=== PATIENT | male | born 1975 | race Caucasian/White ===

== ENCOUNTER 2023-01-23 19:59 | Emergency (ER) | payer OTHER ==
--- OUTSIDE RECORDS SUMMARY | 2023-01-23 20:02 | XMS REPORT | Continuity of Care Document ---
:1975 Author Organization [facility] t Address [address] [facility] [address] [place] [address] Care Team Providers Name Role Phone Brandi CLEMONS, Kalen Primary Care Physician HYACINTH VEGA Attending Clinician Unavailable HEBER DEGROOT Attending Clinician Unavailable Payers Payer Name Policy Type Policy Number Effective Date Expiration Date S rhys MARTINEZ [facility] [id number] [facility] Problems This patient has no known problems. Allergies, Adverse Reactions, Alerts This patient has no known allergies or adverse reactions. Social History Social Habit Start Date Stop Date Quantity Comments Source Gender identity Gnosticism [facility] Sexual orientation Method ist [facility] Alcohol intake 2016-12-16 2016-12-16 Current drinker [facility] 00:00:00 00:00:00 [facility] (finding) Sex Assigned At [birth year] [facility] 00:00:00 00:00:00 Hospital Smoking Status Start Date Stop Date Source Never smoked tobacco [facility] Medications This patient has no known medications. Procedures Procedure Date / Time Performing Clinician Source Performed CBC W/AUTO DIFF WITH 2022-12-11 15:32:00 [facility] COMPREHENSIVE METABOLIC 2022-12-11 15:32:00 [facility] IRON+TIBC+%SAT 2022-12-11 15:32:00 [facility] FERRITIN 2022-12-11 15:32:00 [facility] TSH + FREE T4 PROFILE 2022-12-11 15:32:00 [facility] HEMOGLOBIN A1C 2022-12-11 15:32:00 [facility] Medicine NT-PROBNP 2022-12-11 15:32:00 [facility] Plan of Care Planned Activity Planned Date Details Comments Source Future Scheduled 2022-12-26 COVID-19 VACCINE (#1) [facility] Hospital Test 09:17:20 [code = COVID-19 VACCINE (#1)] Future Scheduled 2022-12-26 COLONOSCOPY SCREENING [facility] Hospital Test 09:17:20 [code = COLONOSCOPY SCREENING] Future Scheduled 2022-12-26 INFLUENZA VACCINE Method is Hospital Test 09:17:20 [code = INFLUENZA VACCINE] Encounters Start End Encounter Admission Attending Care Care Encounter Source Date/Time Date/Time Type Type Clinicians Facility Department ID 2023-01-25 2023-01-25 Outpatient TORY VEGA [facility] [id number] [facility] 00:00:00 00:00:00 HY[facility]INTH [facility] 2023-01-25 2023-01-25 Outpatient SILVIA Sandra [facility] [id number] [facility] 00:00:00 00:00:00 HYACINTH [facility] 2023-01-14 2023-01-14 Outpatient [facility] [id number] [facility] 10:30:03 14:45:23 HEBER [facility] 2022-12-11 2022-12-11 Outpatient [facility] [id number] [facility] 14:37:28 15:14:19 HEBER [facility] 2022-12-09 2022-12-09 Outpatient [facility] [id number] [facility] 00:00:00 00:00:00 HEBER [facility] 2022-11-11 2022-11-11 Outpatient [facility] [id number] [facility] 00:00:00 00:00:00 HEBER [facility] Results This patient has no known results.
[2023-01-23 20:51] LABS: Protime INR 0.97
[2023-01-23 20:53] LABS: Lymphocytes % 15.4 % (15.3-44.8); MCV 90.1 fL (80-100); MPV 8.7 fL (7.6-11.3); RBC Red Blood Cell Count 4.44 M/uL (4.33-5.43)
--- NOTE | 2023-01-23 21:01 | RAD REPORT ---
EXAM DESCRIPTION: CT - Head Brain Wo Cont - 01/23/2023 8:53 pm CLINICAL HISTORY: SYNCOPE COMPARISON: No comparisons TECHNIQUE: Noncontrast head CT images ad were obtained without IV contrast. Multiplanar reformats we re generated and reviewed. All CT scans are performed using dose optimization technique as appropriate and may include automated exposure control or mA/KV adjustment according to patient size. FINDINGS: No intracranial hemorrhage, mass, or edema. Midline structures are unremarkable. Normal ventricular caliber for age. Angelo-white matter differentiation is preserved, without evidence of acute infarct. No abnormal extra- axial fluid collections. Mastoid air cells and visualized portions of the paranasal sinuses are clear. No acute bony findings. IMPRESSION: No evidence of an acute intracranial process.
[2023-01-23 21:14] LABS: ALT/SGPT 28 U/L (16-61); AST/SGOT 19 U/L (15-37); Albumin 4.1 g/dL (3.4-5.0); Alkaline Phosphatase 71 U/L (45-117); BUN Blood Urea Nitrogen 10 mg/dL (7-18); Bicarbonate 29 mEq/L (21-32); Bilirubin Total 0.3 mg/dL (0.2-1.0); Glomerular Filtration Rate 115 ml/min (=/>90); Glucose Level 103 mg/dL (74-106); Magnesium 2.2 mg/dL (1.6-2.4); Potassium 3.7 mEq/L (3.5-5.1); Protein, Total 6.7 g/dL (6.4-8.2); Sodium Level 138 mEq/L (136-145); Troponin High Sensitivity 3.8 pg/mL (<58.9)
[2023-01-23 21:27] LABS: Bilirubin Direct < 0.1 mg/dL (0-0.2)
[2023-01-23 22:29] LABS: Creatine Phosphokinase 79 U/L (39-308)
--- NOTE | 2023-01-23 22:42 | RAD REPORT ---
EXAM DESCRIPTION: RADChest Single View01/23/2023 10:24 pm CLINICAL HISTORY: weakness COMPARISON: Chest Pa And Lat (2 Views) dated 01/20/2023; Chest Single View dated 12/22/2016; CHEST PA AND LAT 2 VIEW dated 06/19/2014 TECHNIQUE: Portable AP view of the chest. FINDINGS: The lungs are clear. No pneumothorax or effusion. The cardiomediastinal contours are unrem arkable. IMPRESSION: No acute cardiopulmonary process.
[2023-01-24 00:16] LABS: Barbiturates NEGATIVE (NEGATIVE); Benzodiazepines NEGATIVE (NEGATIVE); Cocaine NEGATIVE (NEGATIVE); METHAMPHETAM NEGATIVE (NEGATIVE); Methadone NEGATIVE (NEGATIVE); Opiates NEGATIVE (NEGATIVE); Phencyclidine NEGATIVE (NEGATIVE); THC Cannibis POSITIVE (NEGATIVE)
[2023-01-24 00:18] LABS: Specific Gravity 1.021 (1.005-1.030); Urine Bacteria None Seen /HPF (<20); Urine Bilirubin NEGATIVE (Negative); Urine Blood Negative (Negative); Urine Clarity Clear (Clear); Urine Color Colorless (Yellow); Urine Glucose NEGATIVE (Negative); Urine Protein NEGATIVE (Negative); Urine RBC None Seen /HPF (None Seen); Urine Urobilinogen Normal (Normal); Urine pH 7.5 (5.0-7.0)
--- NOTE | 2023-01-24 00:25 | ER ---
Nurse's Notes [facility] Name: Ismael Olivarez Age: 47 yrs Sex: Male : 1975 Arrival Date: 01/23/2023 Time: 19:59 Bed 20 Private MD: Diagnosis: Syncope;Paresthesia of skin;Weakness;Dizziness and giddiness Presentation: 01/23 20:17 Chief complaint: Patient states: States was sitting down when had 3 syncopal episodes ll3 that lasted for a few seconds, c/o tingling to hands and feet, chest tightness, metallic taste in mouth, SOB, nausea, ringing in ears, generalized weakness, and states "I feel like I am intoxicated, like my brain isn't working". Coronavirus screen: Vaccine status: Patient reports being unvaccinated. At this time, the client does not indicate any symptoms associated with coronavirus-19. Ebola Screen: No symptoms or risks identified at this time. Initial Sepsis Screen: Does the patient meet any 2 criteria? No. Patient's initial sepsis screen is negative. Does the patient have a suspected source of infection? No. Patient's initial sepsis screen is negative. Risk Assessment: Do you want to hurt yourself or someone else? Patient reports no desire to harm self or others. Onset of symptoms was January 23, 2023 at 19:10. 20:17 Method Of Arrival: Wheelchair ll3 20:17 Acuity: JAJA 2 ll3 Historical: - Allergies: 20:23 No Known Allergies; ll3 - Home Meds: 20:23 duloxetine oral [Active]; ll3 - PMHx: 20:23 High Cholesterol; Depressive disorder; ll3 - PSHx: 20:23 Cholecystectomy; ll3 - Immunization history:: Client reports having NOT received the Covid vaccine. - Social history:: Smoking status: Patient denies any tobacco usage or history of. Screenin:33 [facility] ED Fall Risk Assessment (Adult) History of falling in the last 3 months, as6 including since admission No falls in past 3 months (0 pts) Confusion or Disorientation No (0 pts) Intoxicated or Sedated No (0 pts) Impaired Gait Yes (1 pt) Mobility Assist Device Used Yes (1 pt) Altered Elimination No (0 pt) Score/Fall Risk Level 0 - 2 = Low Risk. Abuse screen: Denies threats or abuse. Denies injuries from another. Nutritional screening: No deficits noted. Tuberculosis screening: No symptoms or risk factors identified. Assessment: 20:31 General: Appears in no apparent distress. slender, Behavior is calm, cooperative. as6 General: Reports feeling ill for fatigue for. Pain: Complains of pain in generalized Is chronic. Neuro: Level of Consciousness is awake, alert, obeys commands, Oriented to person, place, time, situation, Reports weakness. Cardiovascular: Capillary refill < 3 seconds Patient's skin is warm and dry. Respiratory: Respiratory effort is even, unlabored, Respiratory pattern is regular, symmetrical. GI: No signs and/or symptoms were reported involving the gastrointestinal system. : No signs and/or symptoms were reported regarding the genitourinary system. EENT: No signs and/or symptoms were reported regarding the EENT system. Derm: Skin is intact, is healthy with good turgor. Musculoskeletal: Reports weakness in generalized. Vital Signs: 20:17 BP 115 / 84; Pulse 73; Resp 17; Temp 97.7(O); Pulse Ox 100% on R/A; Weight 65.77 kg ll3 (R); Height 6 ft. 0 in. (R); 21:35 BP 112 / 74 LA Supine; Pulse 70; Resp 14; oe 21:37 BP 103 / 82 LA Sitting; Pulse 70; Resp 12; oe 21:39 BP 107 / 91 LA Standing; Pulse 78; Resp 20; oe 22:30 BP 110 / 77; Pulse 65; Resp 14 S; Pulse Ox 97% on R/A; as6 23:54 BP 113 / 85; Pulse 65; Resp 12 S; Pulse Ox 98% on R/A; as6 20:17 Body Mass Index 19.67 (65.77 kg, 182.88 cm) ll3 NIH Stroke Scale Scores: 20:45 NIHSS Score: 0 cp ED Course: 20:02 Patient arrived in ED. mr 20:07 Obey Sharpe PA is PHCP. cp 20:07 Gilbert Carlson MD is Attending Physician. cp 20:12 Be Carter, DEJAH is Primary Nurse. as6 20:23 Triage completed. ll3 20:23 Arm band placed on. as6 20:33 Bed in low position. Call light in reach. Side rails up X 1. Adult w/ patient. Client as6 placed on continuous cardiac and pulse oximetry monitoring. NIBP monitoring applied. 20:35 Inserted saline lock: 18 gauge in right antecubital area, using aseptic technique. as6 Blood collected. 20:40 ETOH Level Sent. as6 20:41 Basic Metabolic Panel Sent. as6 20:41 CBC with Diff Sent. as6 20:41 LFT's Sent. as6 20:41 Magnesium Sent. as6 20:41 PT-INR Sent. as6 20:41 Troponin HS Sent. as6 20:54 CT Head Brain wo Cont In Process Unspecified. EDMS 22:26 XRAY Chest (1 view) In Process Unspecified. EDMS 23:23 CT Head Angio In Process Unspecified. EDMS 23:23 CT Neck Angio In Process Unspecified. EDMS 01/24 00:19 Pedro Jaffe MD is Referral Physician. cp 00:44 No provider procedures requiring assistance completed. IV discontinued, intact, as6 bleeding controlled, No redness/swelling at site. Pressure dressing applied. Administered Medications: No medications were administered Medication: 01/23 20:41 VIS not applicable for this client. as6 Outcome: 01/24 00:25 Discharge ordered by . cp 00:44 Discharged to home via wheelchair, with family. as6 00:44 Condition: stable 00:44 Discharge instructions given to patient, Instructed on discharge instructions, follow up and referral plans. Demonstrated understanding of instructions, follow-up care. 00:44 Patient left the ED. as6 NIH Stroke Scale - NIH Stroke Score Date: 01/23/2023 Time: 20:45 Total Score = 0 10. Dysarthria (speech clarity - read or repeat words) - 0(Normal) 11. Extinction and Inattention (visual/tactile/auditory/spatial/personal) - 0(No abnormality) 1a. Level of Consciousness (LOC) - 0(Alert) 1b. Level of Consciousness (LOC) (Month \\T\\ Age) - 0(Both) 1c. LOC Commands (Open \\T\\ Closes Eyes/Service Engine Repairer) - 0(Both) 2. Best Gaze (Lateral Gaze Paresis) - 0(Normal) 3. Visual Field Loss - 0(No visual loss) 4. Facial Palsy - 0(Normal) 5a. Left Arm: Motor (10-second hold) - 0(No drift) 5b. Right Arm: Motor (10-second hold) - 0(No drift) 6a. Left Leg: Motor (5-second hold - always test supine) - 0(No drift) 6b. Right Leg: Motor (5-second hold - always test supine) - 0(No drift) 7. Limb Ataxia (finger/nose \\T\\ heel/chávez - test with eyes open) - 0(Absent) 8. Sensory Loss (pinprick arms/legs/face) - 0(Normal) 9. Best Language: Aphasia (description/naming/reading) - 0(No aphasia) Initials: cp Signatures: Dispatcher [employer] ED [place]Jahaira mr Obey Sharpe PA PA cp Melvin Esteban Ashby RN RN as6 Mari Cam RN RN ll3 Corrections: (The following items were deleted from the chart) 01/23 21:40 21:35 BP 112 / 74; Pulse 70bpm; Resp 14bpm; oe oe 21:42 21:35 BP 112 / 74 Supine R Arm; Pulse 70bpm; Resp 14bpm; oe oe
--- NOTE | 2023-01-24 00:26 | EDPHYS ---
Physician Documentation [facility] Name: Ismael Olivarez Age: 47 yrs Sex: Male : 1975 Arrival Date: 01/23/2023 Time: 19:59 Bed 20 Private MD: ED Physician Gilbert Carlson HPI: 01/23 20:35 This 47 yrs old Male presents to ER via Wheelchair with complaints of METALLIC TASTE, cp Dizziness, Numbness, General Weakness, Altered Mental Status. 20:35 The patient has experienced syncope, lost consciousness. cp 20:35 Onset: The symptoms/episode began/occurred today. Duration: The patient has had cp multiple episodes, that last an unknown period of time. Context: the episode(s) was witnessed, by family, father, occurred at home, occurred while the patient was sitting outside on deck. Just prior to the episode the patient experienced lightheadedness, general weakness. Associated injury: The patient did not suffer any apparent associated injury. Associated signs and symptoms: Pertinent positives: dizziness, lightheadedness, numbness, tingling, general weakness, chest tightness. Patient reports over last several days that he has not felt himself or well, but denies fever, cough, chest and/or abdominal pain. Historical: - Allergies: 20:23 No Known Allergies; ll3 - Home Meds: 20:23 duloxetine oral [Active]; ll3 - PMHx: 20:23 High Cholesterol; Depressive disorder; ll3 - PSHx: 20:23 Cholecystectomy; ll3 - Immunization history:: Client reports having NOT received the Covid vaccine. - Social history:: Smoking status: Patient denies any tobacco usage or history of. ROS: 20:40 Constitutional: Positive for body aches, chills, Negative for fever, poor PO intake. cp 20:40 Cardiovascular: Negative for chest pain, edema, palpitations. cp 20:40 Respiratory: Negative for cough, shortness of breath, wheezing. 20:40 Abdomen/GI: Negative for abdominal pain, nausea, vomiting, and diarrhea. 20:40 Neuro: Positive for dizziness, headache, numbness, syncope, tingling, weakness. Exam: 20:45 Constitutional: The patient appears in no acute distress, alert, awake, cp non-diaphoretic, non-toxic, well developed, well nourished. 20:45 Head/Face: Normocephalic, atraumatic. cp 20:45 Eyes: Periorbital structures: appear normal, Pupils: equal, round, and reactive to light and accomodation, Extraocular movements: intact throughout, Conjunctiva: normal, no exudate, no injection, Sclera: no appreciated abnormality, Lids and lashes: appear normal, bilaterally. 20:45 ENT: External ear(s): are unremarkable, Nose: is normal, Mouth: Lips: moist, Oral mucosa: pink and intact, moist, Posterior pharynx: is normal, airway is patent, no erythema, no exudate. 20:45 Neck: ROM/movement: is normal, is supple, without pain, no range of motions limitations, no meningismus. 20:45 Chest/axilla: Inspection: normal. 20:45 Cardiovascular: Rate: normal, Rhythm: regular, Edema: is not appreciated, JVD: is not appreciated. 20:45 Respiratory: the patient does not display signs of respiratory distress, Respirations: normal, no use of accessory muscles, no retractions, labored breathing, is not present, Breath sounds: are clear throughout, no decreased breath sounds, no stridor, no wheezing. 20:45 Abdomen/GI: Inspection: abdomen appears normal, Bowel sounds: active, all quadrants, Palpation: abdomen is soft and non-tender, in all quadrants. 20:45 Back: pain, is absent, ROM is normal. 20:45 Skin: cellulitis, is not appreciated, no rash present. 20:45 Neuro: Orientation: to person, place \T\ time. Mentation: is normal, Cerebellar function: is grossly normal, Motor: moves all fours, strength is normal, Sensation: no obvious gross deficits. Vital Signs: 20:17 BP 115 / 84; Pulse 73; Resp 17; Temp 97.7(O); Pulse Ox 100% on R/A; Weight 65.77 kg ll3 (R); Height 6 ft. 0 in. (R); 21:35 BP 112 / 74 LA Supine; Pulse 70; Resp 14; oe 21:37 BP 103 / 82 LA Sitting; Pulse 70; Resp 12; oe 21:39 BP 107 / 91 LA Standing; Pulse 78; Resp 20; oe 22:30 BP 110 / 77; Pulse 65; Resp 14 S; Pulse Ox 97% on R/A; as6 23:54 BP 113 / 85; Pulse 65; Resp 12 S; Pulse Ox 98% on R/A; as6 20:17 Body Mass Index 19.67 (65.77 kg, 182.88 cm) ll3 NIH Stroke Scale Scores: 20:45 NIHSS Score: 0 cp MDM: 20:09 Patient medically screened. cp 21:00 Differential Diagnosis: aortic aneurysm, cardiac arrhythmia, cerebrovascular accident, cp drug effect, GI bleed, pseudo seizure, seizure, transient ischemic attack, vasovagal episode, acute MA. 01/24 00:25 Data reviewed: vital signs, nurses notes, lab test result(s), EKG, radiologic studies, cp CT scan, plain films. 00:25 Consideration of Admission/Observation Escalation of care including cp admission/observation considered. Test considered but Not performed: MRI: brain. 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 Response to treatment: the patient's symptoms have markedly improved after treatment, and as a result, I will discharge patient. ED course: VSS. Labs, EKG and radiology studies reviewed. No seizure and/or syncopal episodes observed while monitoring patient. Will discharge to home for continued monitoring. 01/23 20:32 Order name: Basic Metabolic Panel; Complete Time: 23:20 cp 01/23 21:47 Interpretation: Normal except: CRE 0.68. cp 01/23 20:32 Order name: CBC with Diff; Complete Time: 21:47 cp 01/23 21:47 Interpretation: Normal except: LUIS% 74.6. cp 01/23 20:32 Order name: LFT's; Complete Time: 23:20 cp 01/23 21:47 Interpretation: Reviewed. cp 01/23 20:32 Order name: Magnesium; Complete Time: 23:20 cp 01/23 20:32 Order name: PT-INR; Complete Time: 21:47 cp 01/23 20:32 Order name: Troponin HS; Complete Time: 23:20 cp 01/23 23:20 Interpretation: Reviewed. 01/23 20:32 Order name: Urinalysis W/Microscopic; Complete Time: 00:25 cp 01/23 20:32 Order name: UDS; Complete Time: 00:25 cp 01/23 20:32 Order name: ETOH Level; Complete Time: 21:47 cp 01/23 21:48 Order name: COVID-19 SARS RT PCR cp 01/23 22:19 Order name: Creatine Phosphokinase; Complete Time: 23:20 EDMS 01/23 20:32 Order name: XRAY Chest (1 view); Complete Time: 23:20 cp 01/23 23:20 Interpretation: Report review. 01/23 20:32 Order name: CT Head Brain wo Cont; Complete Time: 21:47 cp 01/23 22:37 Order name: CT Head Angio 01/23 22:37 Order name: CT Neck Angio 01/23 20:32 Order name: EKG; Complete Time: 20:33 cp 01/23 20:32 Order name: Cardiac monitoring; Complete Time: 20:33 cp 01/23 20:32 Order name: EKG - Nurse/Tech; Complete Time: 20:33 cp 01/23 20:32 Order name: IV Saline Lock; Complete Time: 20:41 cp 01/23 20:32 Order name: Labs collected and sent; Complete Time: 20:41 cp 01/23 20:32 Order name: O2 Per Protocol; Complete Time: 20:33 cp 01/23 20:32 Order name: O2 Sat Monitoring; Complete Time: 20:33 cp 01/23 20:32 Order name: Orthostatics; Complete Time: 21:37 cp EC:36 Rate is 78 beats/min. Rhythm is regular. NE interval is normal. QRS interval is cp prolonged at 102 msec. QT interval is normal. T waves are Inverted in lead aVR. Interpreted by me. Reviewed by me. Administered Medications: No medications were administered Disposition: 07:14 Co-signature as Attending Physician, Gilbert Carlson MD I agree with the assessment sp4 and plan of care. I reviewed the patient's care provided by the Advanced Practice Provider and agree with the diagnosis and treatment plan. Disposition Summary: 01/24/23 00:25 Discharge Ordered Location: Home cp Problem: new cp Symptoms: have improved cp Condition: Stable cp Diagnosis - Syncope cp - Paresthesia of skin cp - Weakness cp - Dizziness and giddiness cp Followup: cp - With: Pedro Jaffe MD - When: 2 - 3 days - Reason: syncope Discharge Instructions: - Discharge Summary Sheet cp - Dizziness cp - Paresthesia cp - Syncope cp - Weakness cp Forms: - Medication Reconciliation Form cp - Thank You Letter cp - Antibiotic Education cp - Prescription Opioid Use cp Prescriptions: - Meclizine 25 mg Oral Tablet - take 1 tablet by ORAL route every 8 hours As needed; 30 tablet; Refills: 0, cp Product Selection Permitted NIH Stroke Scale - NIH Stroke Score Date: 01/23/2023 Time: 20:45 Total Score = 0 10. Dysarthria (speech clarity - read or repeat words) - 0(Normal) 11. Extinction and Inattention (visual/tactile/auditory/spatial/personal) - 0(No abnormality) 1a. Level of Consciousness (LOC) - 0(Alert) 1b. Level of Consciousness (LOC) (Month \T\ Age) - 0(Both) 1c. LOC Commands (Open \T\ Closes Eyes/Senior Embedded Software Engineer) - 0(Both) 2. Best Gaze (Lateral Gaze Paresis) - 0(Normal) 3. Visual Field Loss - 0(No visual loss) 4. Facial Palsy - 0(Normal) 5a. Left Arm: Motor (10-second hold) - 0(No drift) 5b. Right Arm: Motor (10-second hold) - 0(No drift) 6a. Left Leg: Motor (5-second hold - always test supine) - 0(No drift) 6b. Right Leg: Motor (5-second hold - always test supine) - 0(No drift) 7. Limb Ataxia (finger/nose \T\ heel/chávez - test with eyes open) - 0(Absent) 8. Sensory Loss (pinprick arms/legs/face) - 0(Normal) 9. Best Language: Aphasia (description/naming/reading) - 0(No aphasia) Initials: cp Signatures: Dispatcher [employer] EDMS Obey Sharpe PA PA cp Loubet, Lynsea, RN RN ll3 Gilbert Carlson MD MD sp4 Corrections: (The following items were deleted from the chart) 01/23 22:19 22:11 CREATINE PHOSPHOKINASE+C.LAB.BRZ ordered. EDMS EDMS
[2023-01-24 00:54] VITALS: TEMP 97.7
[2023-01-24 01:02] VITALS: BP 113/85; O2SAT 98
--- NOTE | 2023-01-25 12:41 | EKG ---
Test Date: 2023-01-23 Test Time: 20:19:25 Electronic Data Interchange Specialist: MEASUREMENT RESULTS: Intervals: Rate: 78 NM: 152 QRSD: 102 QT: 378 QTc: 430 [place]: P: 74 NM: 152 QRS: 38 T: 61 INTERPRETIVE STATEMENTS: Normal sinus rhythm with sinus arrhythmia Normal ECG Compared to ECG 12/22/2016 14:47:56 Incomplete right bundle-branch block no longer present Electronically Signed On 01-25-23 12:37:25 CDT by Lucio Griffin
--- NOTE | 2023-01-25 13:29 | RAD REPORT ---
EXAM DESCRIPTION: CT - Head angio - 01/24/2023 7:26 am CLINICAL HISTORY: 47 years, Male, SYNCOPE COMPARISON: None. TECHNIQUE: Multiple transaxial tomograms from the aortic arch through the brain were performed after administration of large bolus of IV contrast for complete opacification of the carotid arteries and intracranial vessels. Subsequent 2-D and 3-D multiplanar reformats, volume rendering technique and maximum intensity projec tion images were generated and reviewed. Stenosis measurements were performed according to NASCET agustín styles. CAROTID STENOSIS REFERENCE USING NASCET CRITERIA: % ICA stenosis = (1 - narrowest ICA diameter/diameter of distal cervical ICA) x 100. Mild - <50% stenosis. Moderate - 50-69% stenosis. Severe - 70-94% stenosis. Near occlusion - 95-99% stenosis. Occluded - 100% stenosis. This exam was performed according to our departmental dose-optimization protocol, which includes auto mated exposure control, adjustment of the mA and/or kV according to patient size and/or use of iterat orly reconstruction technique. FINDINGS: Ascending aorta: The ascending thoracic aorta was not included in the field of imaging. There are codominant vertebral arteries which demonstrate normal opacification. No great vessel o rigin stenosis is identified. Right carotid artery: Normal opacification is demonstrated within the right common carotid artery a nd at the carotid bifurcation. The right carotid bulb demonstrate to be within normal limits. There i s no evidence for significant stenosis. The proximal, mid and distal portions of the right internal c arotid artery demonstrate to be patent. There is no evidence for significant stenosis and/or occlusio n. Left carotid artery: Normal opacification is demonstrated within the left common carotid artery an d at the carotid bifurcation. The left carotid bulb demonstrate to be within normal limits. There is no evidence for significant stenosis. The proximal, mid and distal portions of the left internal johnson tid artery demonstrate to be patent. There is no evidence for significant stenosis and/or occlusion. Intracranial circulation: Intracranial portions of the internal carotid arteries the cavernous sinus portions demonstrates no evidence for significant stenosis and/or aneurysm. The anterior cerebral a rteries, middle cerebral arteries and its branches demonstrate normal opacification with no evidence for significant stenosis aneurysm and/or occlusion. There is normal venous drainage with no evidence for significant sinus vein thrombosis. Vertebrobasilar system: The posterior circulation demonstrate codominant bilateral vertebral arteries with no evidence for significant stenosis and/or evidence for significant dissection. The vertebroba silar system and IT APPLICATIONS DEVELOPER demonstrate to be normal with no evidence for aneurysm and/or occlusion. Grossly the brain parenchyma demonstrate normal sanchez-white matter differentiation with no evidence fo r mass effect and/or midline shift. No evidence for abnormal parenchymal enhancement. The skull base and intracranial structures demonstrate to be within normal limits. Lung apex: No gross abnormalities are noted within the apices. IMPRESSION: No evidence for significant stenosis and/or occlusion involving the cervical carotid or vertebral arteries. No evidence for significant stenosis and/or occlusion of the intracranial circulation. Electronically signed by: Akash Grayson MD 01/23/2023 11:42 PM CDT Due to temporary technical issues with the PACS/Fluency reporting system, reports are being signed by the in house radiologist without review as a courtesy to ensure prompt reporting. The interpreting r adiologist is fully responsible for the content of the report.
--- NOTE | 2023-01-25 13:39 | RAD REPORT ---
EXAM DESCRIPTION: CT - Neck Angio - 01/24/2023 7:26 am CLINICAL HISTORY: 47 years, Male, SYNCOPE COMPARISON: None. TECHNIQUE: Multiple transaxial tomograms from the aortic arch through the brain were performed after administration of large bolus of IV contrast for complete opacification of the carotid arteries and intracranial vessels. Subsequent 2-D and 3-D multiplanar reformats, volume rendering technique and maximum intensity projec tion images were generated and reviewed. Stenosis measurements were performed according to NASCET agustín styles. CAROTID STENOSIS REFERENCE USING NASCET CRITERIA: % ICA stenosis = (1 - narrowest ICA diameter/diameter of distal cervical ICA) x 100. Mild - <50% stenosis. Moderate - 50-69% stenosis. Severe - 70-94% stenosis. Near occlusion - 95-99% stenosis. Occluded - 100% stenosis. This exam was performed according to our departmental dose-optimization protocol, which includes auto mated exposure control, adjustment of the mA and/or kV according to patient size and/or use of iterat orly reconstruction technique. FINDINGS: Ascending aorta: The ascending thoracic aorta was not included in the field of imaging. There are codominant vertebral arteries which demonstrate normal opacification. No great vessel o rigin stenosis is identified. Right carotid artery: Normal opacification is demonstrated within the right common carotid artery a nd at the carotid bifurcation. The right carotid bulb demonstrate to be within normal limits. There i s no evidence for significant stenosis. The proximal, mid and distal portions of the right internal c arotid artery demonstrate to be patent. There is no evidence for significant stenosis and/or occlusio n. Left carotid artery: Normal opacification is demonstrated within the left common carotid artery an d at the carotid bifurcation. The left carotid bulb demonstrate to be within normal limits. There is no evidence for significant stenosis. The proximal, mid and distal portions of the left internal johnson tid artery demonstrate to be patent. There is no evidence for significant stenosis and/or occlusion. Intracranial circulation: Intracranial portions of the internal carotid arteries the cavernous sinus portions demonstrates no evidence for significant stenosis and/or aneurysm. The anterior cerebral a rteries, middle cerebral arteries and its branches demonstrate normal opacification with no evidence for significant stenosis aneurysm and/or occlusion. There is normal venous drainage with no evidence for significant sinus vein thrombosis. Vertebrobasilar system: The posterior circulation demonstrate codominant bilateral vertebral arteries with no evidence for significant stenosis and/or evidence for significant dissection. The vertebroba silar system and ROAD ROLLER OPERATOR demonstrate to be normal with no evidence for aneurysm and/or occlusion. Grossly the brain parenchyma demonstrate normal sanchez-white matter differentiation with no evidence fo r mass effect and/or midline shift. No evidence for abnormal parenchymal enhancement. The skull base and intracranial structures demonstrate to be within normal limits. Lung apex: No gross abnormalities are noted within the apices. IMPRESSION: No evidence for significant stenosis and/or occlusion involving the cervical carotid or vertebral arteries. No evidence for significant stenosis and/or occlusion of the intracranial circulation. Electronically signed by: Akash Grayson MD 01/23/2023 11:42 PM CDT Due to temporary technical issues with the PACS/Fluency reporting system, reports are being signed by the in house radiologist without review as a courtesy to ensure prompt reporting. The interpreting r adiologist is fully responsible for the content of the report.
== END 2023-01-24 00:44 | disposition home or self-care (01) ==
LOC: ER 19:59
DX: R55 Syncope and collapse (principal); R20.2 Paresthesia of skin; R53.1 Weakness; R42 Dizziness and giddiness; R51.9 Headache, unspecified; F32.A Depression, unspecified; E78.00 Pure hypercholesterolemia, unspecified; Z20.822 Contact with and (suspected) exposure to COVID-19
CPT/HCPCS: 93005; 85025; 81001; 80048; 36415; 83735; 82550; 85610; 80076; 84484; 80307; 70450; 70496; 70498; 71045; 99284; U0003; Q9967; G0480

== ENCOUNTER 2023-02-24 06:50 | Day surgery (SDC) | payer OTHER ==
[2023-02-24] MEDS ORDERED: COSYNTROPIN 0.25 MG VIAL IV ONE (08:00)
[2023-02-24] MEDS ORDERED: SODIUM CHLORIDE 0.9% 10ML INJ IV ONE (08:00)
[2023-02-24 08:17] VITALS: BP 114/75; TEMP 97; O2SAT 98; BMI 19.6
== END 2023-02-24 09:45 | disposition home or self-care (01) ==
LOC: DS 06:50
PROVIDERS: ATTEND Internal Medicine
DX: E27.1 Primary adrenocortical insufficiency (principal)
CPT/HCPCS: 36415; 82533 ×4; 82024; 96372; A4216; J0834

== ENCOUNTER 2025-02-07 10:51 | Emergency (ER) | payer OTHER ==
[2025-02-07] MEDS ORDERED: IPRATROPIUM BROM 0.5MG/2.5ML ONE (11:20)
[2025-02-07] MEDS ORDERED: ALBUTEROL 2.5 MG/3 ML NEB SOL ONE (11:20)
--- NOTE | 2025-02-07 11:41 | RAD REPORT ---
EXAM: Chest Single View HISTORY: 49 years Male DYSPNEA COMPARISON: 01/23/2023 FINDINGS: LUNGS/PLEURA: The lungs are clear. No pleural effusions or pneumothorax. No pulmonary edema. CARDIAC/MEDIASTINUM: The cardiac silhouette is within normal limits. UPPER ABDOMEN: No significant abnormality. BONES: No acute abnormality. LINES/TUBES/OTHER: N/A IMPRESSION: No evidence of acute cardiopulmonary disease.
[2025-02-07 11:50] LABS: Absolute Eosinophils 0.1 K/uL (0-0.5); Absolute Lymphocytes (CBC) 1.1 K/uL (0.7-4.9); Absolute Monocytes 0.3 K/uL (0.1-1.3); Absolute Neutrophil 2.4 K/uL (1.8-8.0); Basophils % 1.1 % (0-1.3); Eosinophils % 1.7 % (0-4.4); Hematocrit 44.6 % (39.6-49.0); Hemoglobin 16.3 g/dL (13.6-17.9); Lymphocytes % 28.8 % (15.3-44.8); MCH 31.7 pg (27.0-35.0); MCHC 36.5 g/dL (32.0-36.0); MCV 86.7 fL (80-100); MPV 9.4 fL (7.6-11.3); Monocytes % 8.2 % (3.3-12.3); Neutrophils % 60.2 % (41.7-73.7); Nucleated Red Blood Cells % 0.1 % (0-0); Platelets 208 thou/uL (152-406); RBC Red Blood Cell Count 5.15 M/uL (4.33-5.43); Red Cell Distribution Width 12.8 % (12.1-15.2)
--- NOTE | 2025-02-07 11:58 | RAD REPORT ---
EXAMINATION: Head Brain Wo Cont CLINICAL INDICATION: Male, 49 years old.NUMBNESS TECHNIQUE: Axial CT images from the skull base to the vertex without intravenous contrast. Coronal an d sagittal reformatted images were created from the data set. One or more of the following dose reduction techniques were used: Automated exposure control, adjustment of the mA and/or kV according to patient size, and/or iterative reconstruction. Unless otherwise specified, incidental findings do not require dedicated imaging follow-up. [id number]. COMPARISON: 01/03/2023 FINDINGS: INTRACRANIAL: No acute intracranial hemorrhage. No hydrocephalus. No mass effect or midline shift. No significant white matter disease. VASCULATURE: No visualized abnormalities in the arteries or dural venous sinuses. SCALP/SKULL: No calvarial fracture identified. No acute soft tissue abnormality. SINUSES: The visualized paranasal sinuses are mostly clear. No significant mastoid fluid. IMPRESSION: No acute intracranial abnormality.
[2025-02-07 12:23] LABS: Blood Morphology Comment NOT SEEN (NOT SEEN); Platelet Estimate ADEQ; White Blood Cell Scan OK (OK)
[2025-02-07 12:25] LABS: Albumin 4.4 g/dL (3.4-5.0); Albumin/Globulin Ratio 1.3 (1.1-1.8); Anion Gap 14.3 mEq/L (5.0-15.0); Bilirubin Direct 0.2 mg/dL (0-0.2); Bilirubin Indirect, Calculated 0.4 mg/dL (0.2-0.8); Bilirubin Total 0.6 mg/dL (0.2-1.0); Globulin 3.3 g/dL (2.3-3.5); Magnesium 1.8 mg/dL (1.6-2.4); Potassium 3.3 mEq/L (3.5-5.1); Protein, Total 7.7 g/dL (6.4-8.2); Thyroid Stimulating Hormone 0.463 uIU/mL (0.358-3.740); Troponin High Sensitivity 8.4 pg/mL (<58.9)
--- NOTE | 2025-02-07 13:07 | ER ---
Nurse's Notes [facility] Name: Ismael Olivarez Age: 49 yrs Sex: Male : 1975 Arrival Date: 02/07/2025 Time: 10:51 Bed 20 Private MD: Diagnosis: Dyspnea;Chest pain;Numbness Presentation: 02/07 11:06 Chief complaint: Patient states: has had trouble breathing since Wednesday , today he is iw having numbness to his arms and chest and face , worsens when he moving , he is very weak, hx of hemochromatosis. Coronavirus screen: At this time, the client does not indicate any symptoms associated with coronavirus-19. Ebola Screen: No symptoms or risks identified at this time. Initial Sepsis Screen: Does the patient meet any 2 criteria? No. Patient's initial sepsis screen is negative. Does the patient have a suspected source of infection? No. Patient's initial sepsis screen is negative. Risk Assessment: Do you want to hurt yourself or someone else? Patient reports no desire to harm self or others. 11:06 Method Of Arrival: Wheelchair 11:06 Acuity: JAJA 2 iw 11:07 Onset of symptoms was February 07, 2025. iw Triage Assessment: 11:10 General: Appears in no apparent distress. Behavior is cooperative, appropriate for age, bp anxious. Pain: Denies pain. EENT: No deficits noted. Neuro: No deficits noted. Cardiovascular: No deficits noted. Respiratory: Reports shortness of breath Onset: The symptoms/episode began/occurred suddenly, the patient has mild shortness of breath. GI: No signs and/or symptoms were reported involving the gastrointestinal system. : No signs and/or symptoms were reported regarding the genitourinary system. Derm: No deficits noted. Musculoskeletal: No deficits noted. Historical: - Allergies: 11:10 Vicodin; iw - Home Meds: 11:10 promethazine 25 mg Oral tablet every 6 hours [Active]; iw - PMHx: 11:08 depressive disorder; High Cholesterol; hemochomatosis; iw - PSHx: 11:08 Cholecystectomy; iw - Immunization history:: Adult Immunizations up to date. - Infectious Disease History:: Denies. - Family history:: not pertinent. - Social history:: Smoking status: Patient denies any tobacco usage or history of. Screenin:53 [facility] ED Fall Risk Assessment (Adult) History of falling in the last 3 months, bp including since admission No falls in past 3 months (0 pts) Confusion or Disorientation No (0 pts) Intoxicated or Sedated No (0 pts) Impaired Gait No (0 pts) Mobility Assist Device Used No (0 pt) Altered Elimination No (0 pt) Score/Fall Risk Level 0 - 2 = Low Risk Oriented to surroundings. Abuse screen: Denies threats or abuse. Denies injuries from another. Nutritional screening: No deficits noted. Tuberculosis screening: No symptoms or risk factors identified. Assessment: 11:10 General: Appears in no apparent distress. Behavior is cooperative, appropriate for age, bp anxious, SEE TRIAGE NOTE. 12:52 Reassessment: Patient appears in no apparent distress at this time. Patient is alert, bp oriented x 3, equal unlabored respirations, skin warm/dry/pink. Pain: Denies pain. Neuro: No deficits noted. Cardiovascular: Rhythm is sinus rhythm. Respiratory: Airway is patent Respiratory effort is even, unlabored, Breath sounds are clear bilaterally. GI: No signs and/or symptoms were reported involving the gastrointestinal system. : No signs and/or symptoms were reported regarding the genitourinary system. EENT: No deficits noted. Vital Signs: 11:22 BP 144 / 98; Pulse 97; Resp 22; Pulse Ox 99% on R/A; iw 12:50 BP 116 / 87; Pulse 97; Resp 18; Pulse Ox 99% ; bp ED Course: 10:52 Patient arrived in ED. im 10:52 Yaya Llamas MD is Attending Physician. rt 11:07 Triage completed. iw 11:23 Arm band placed on. iw 11:36 Nathan Bowling, DEJAH is Primary Nurse. bp 11:38 XRAY Chest (1 view) In Process Unspecified. EDMS 11:47 Inserted saline lock: 22 gauge in right hand, using aseptic technique. Blood collected. nh2 Flushed with 10 mL NS. 11:51 CT Head Brain wo Cont In Process Unspecified. EDMS 12:53 Patient has correct armband on for positive identification. bp 13:05 Roshan Aden MD is Referral Physician. rt Administered Medications: 11:57 Drug: Albuterol Inhalation 2.5 mg Inhalation once Route: Inhalation; bp 11:57 Drug: Ipratropium Inhalation Aerosol 0.5 mg Inhalation once Route: Inhalation; bp Medication: 12:52 VIS not applicable for this client. bp Outcome: 13:06 Discharge ordered by . rt 13:27 Patient left the ED. bp Signatures: Dispatcher [employer] EDSusanna Rodriguez, Nathan Gotti RN, RN RN bp [place], Ryan, MD MD rt Nancy Moralez Jr, [place] nh2
--- NOTE | 2025-02-07 13:07 | EDPHYS ---
Physician Documentation [facility] Name: Ismael Olivarez Age: 49 yrs Sex: Male : 1975 Arrival Date: 02/07/2025 Time: 10:51 Bed 20 Private MD: ED Physician Yaya Llamas HPI: 02/07 14:20 This 49 yrs old Male presents to ER via Wheelchair with complaints of Shortness Of rt Breath, Numbness Of Arm. 14:20 Patient presents to the ED reporting difficulty breathing since Wednesday. Patient has rt had a chest tightness during that time. Reports some numbness, denies other acute complaints at this time. Symptoms are moderate in severity, no other aggravating or alleviating factors. To the chest that radiates to the left arm, denies other episodes of numbness. Historical: - Allergies: 11:10 Vicodin; iw - Home Meds: 11:10 promethazine 25 mg Oral tablet every 6 hours [Active]; iw - PMHx: 11:08 depressive disorder; High Cholesterol; hemochomatosis; iw - PSHx: 11:08 Cholecystectomy; iw - Immunization history:: Adult Immunizations up to date. - Infectious Disease History:: Denies. - Family history:: not pertinent. - Social history:: Smoking status: Patient denies any tobacco usage or history of. ROS: 14:20 Constitutional: Negative for fever, chills, and weight loss, Abdomen/GI: Negative for rt abdominal pain, nausea, vomiting, diarrhea, and constipation, MS/Extremity: Negative for injury and deformity, Skin: Negative for injury, rash, and discoloration, 14:20 Cardiovascular: Positive for chest pain, Negative for edema, 14:20 Respiratory: Positive for shortness of breath, Negative for cough, 14:20 Neuro: Positive for numbness, Negative for altered mental status, Exam: 14:20 Constitutional: This is a well developed, well nourished patient who is awake, alert, rt and in no acute distress. Head/Face: Normocephalic, atraumatic. Chest/axilla: Normal chest wall appearance and motion. Nontender with no deformity. No lesions are appreciated. Cardiovascular: Regular rate and rhythm with a normal S1 and S2. No gallops, murmurs, or rubs. Normal PMI, no JVD. No pulse deficits. Respiratory: Lungs have equal breath sounds bilaterally, clear to auscultation and percussion. No rales, rhonchi or wheezes noted. No increased work of breathing, no retractions or nasal flaring. Abdomen/GI: Soft, non-tender, with normal bowel sounds. No distension or tympany. No guarding or rebound. No evidence of tenderness throughout. Skin: Warm, dry with normal turgor. Normal color with no rashes, no lesions, and no evidence of cellulitis. MS/ Extremity: Pulses equal, no cyanosis. Neurovascular intact. Full, normal range of motion. Neuro: Awake and alert, GCS 15, oriented to person, place, time, and situation. Cranial nerves II-XII grossly intact. Motor strength 5/5 in all extremities. Sensory grossly intact. Cerebellar exam normal. Normal gait. 14:20 ECG was reviewed by the Attending Physician. Vital Signs: 11:22 BP 144 / 98; Pulse 97; Resp 22; Pulse Ox 99% on R/A; iw 12:50 BP 116 / 87; Pulse 97; Resp 18; Pulse Ox 99% ; bp MDM: 10:59 Medical Screening Exam initiated rt 14:20 Differential diagnosis: Dysrhythmia, ACS, pneumonia, bronchospasm, viral syndrome. Data rt reviewed: vital signs, nurses notes, lab test result(s), EKG, radiologic studies. Consideration of Admission/Observation Escalation of care including admission/observation considered. Management of patient was discussed with the following: Primary Care Provider: Discussed with PCP, agrees no need to admit, will follow-up patient in the office.. Independent interpretation of the following test(s) in the Emergency Department X-Ray: My interpretation is No infiltrate seen on interpretation of x-ray images. Test considered but Not performed: CT: D-dimer negative, low suspicion for PE, CT angiogram is not indicated. Care significantly affected by the following chronic conditions: Hyperlipidemia. Counseling: I had a detailed discussion with the patient and/or guardian regarding the historical points, exam findings, and any diagnostic results supporting the discharge/admit diagnosis, lab results, radiology results, the need for outpatient follow up. 02/07 11:08 Order name: Basic Metabolic Panel; Complete Time: 12:39 rt 02/07 11:08 Order name: CBC with Diff; Complete Time: 12:39 rt 02/07 11:08 Order name: LFT's; Complete Time: 12:39 rt 02/07 11:08 Order name: Magnesium; Complete Time: 12:39 rt 02/07 11:08 Order name: NT PRO-BNP; Complete Time: 12:39 rt 02/07 11:08 Order name: Troponin HS; Complete Time: 12:39 rt 02/07 11:08 Order name: TSH; Complete Time: 12:39 rt 02/07 11:23 Order name: D-Dimer; Complete Time: 12:39 rt 02/07 11:54 Order name: CBC Smear Scan; Complete Time: 12:39 EDMS 02/07 11:08 Order name: XRAY Chest (1 view); Complete Time: 12:10 rt 02/07 11:08 Order name: CT Head Brain wo Cont; Complete Time: 12:10 rt 02/07 11:08 Order name: Cardiac monitoring; Complete Time: 11:57 rt 02/07 11:08 Order name: EKG - Nurse/Tech; Complete Time: 11:57 rt 02/07 11:08 Order name: IV Saline Lock; Complete Time: 11:57 rt 02/07 11:08 Order name: Labs collected and sent; Complete Time: 11:57 rt 02/07 11:08 Order name: O2 Per Protocol; Complete Time: 11:57 rt 02/07 11:08 Order name: O2 Sat Monitoring; Complete Time: 11:57 rt 02/07 11:56 Order name: Labs - recollect needed: recollect blue top- overfilled; Complete Time: iw 12:43 EC:20 Rate is 89 beats/min. Rhythm is regular, Normal Sinus Rhythm with No ectopy, Right rt bundle branch block. QRS [place] is Normal. IA interval is normal. QRS interval is normal. QT interval is normal. No Q waves. No ST changes noted. Interpreted by me. Administered Medications: 11:57 Drug: Albuterol Inhalation 2.5 mg Inhalation once Route: Inhalation; bp 11:57 Drug: Ipratropium Inhalation Aerosol 0.5 mg Inhalation once Route: Inhalation; bp Disposition Summary: 02/07/25 13:06 Discharge Ordered Notes: Location: Home rt Problem: an ongoing problem rt Symptoms: are unchanged rt Condition: Stable rt Diagnosis - Dyspnea rt - Chest pain rt - Numbness rt Followup: rt - With: Roshan Aden MD - When: 2 - 3 days - Reason: Discharge Instructions: - Discharge Summary Sheet rt - Nonspecific Chest Pain, Adult rt - Shortness of Breath, Adult rt Forms: - Medication Reconciliation Form rt - Antibiotic Education rt - Prescription Opioid Use rt - Patient Portal Instructions rt - Leadership Thank You Letter rt Signatures: Dispatcher [employer] EDMS Susanna Hopper, RN RN Nathan Shaw RN RN Yaya Parker MD MD rt Corrections: (The following items were deleted from the chart) : 11:09 BASIC METABOLIC PANEL+C.LAB.BRZ ordered. EDMS EDMS 11: 11:09 CBC+H.LAB.BRZ ordered. EDMS EDMS 11: 11:09 HEPATIC FUNCTION+C.LAB.BRZ ordered. EDMS EDMS 11: 11:09 MAGNESIUM+C.LAB.BRZ ordered. EDMS EDMS 11: 11:09 PROBNP+C.LAB.BRZ ordered. EDMS EDMS 11: 11:09 Troponin High Sensitivity+C.LAB.BRZ ordered. EDMS EDMS 11: 11:09 THYROID STIMULAT HORMONE+C.LAB.BRZ ordered. EDMS EDMS 11: 11:09 Chest Single View+RAD.RAD.BRZ ordered. EDMS EDMS 11: 11:09 Head Brain Wo Cont+CT.RAD.BRZ ordered. EDMS EDMS
[2025-02-07 13:42] VITALS: O2SAT 99
[2025-02-07 13:44] VITALS: BP 116/87
--- NOTE | 2025-02-12 17:03 | EKG ---
Test Date: 2025-02-07 Test Time: 11:00:17 House Servant: LAURA MEASUREMENT RESULTS: Intervals: Rate: 89 IL: 142 QRSD: 100 QT: 364 QTc: 442 Manning: P: 82 IL: 142 QRS: 24 T: 49 INTERPRETIVE STATEMENTS: Normal sinus rhythm Incomplete right bundle branch block Borderline ECG Compared to ECG 01/23/2023 20:19:25 Incomplete right bundle-branch block now present Sinus arrhythmia no longer present Electronically Signed On 02-12-25 16:56:34 CDT by Norm Baptiste
== END 2025-02-07 13:27 | disposition home or self-care (01) ==
LOC: ER 10:51
DX: R06.00 Dyspnea, unspecified (principal); R07.9 Chest pain, unspecified; R20.0 Anesthesia of skin; E78.00 Pure hypercholesterolemia, unspecified
CPT/HCPCS: 85025; 80048; 36415; 83735; 85379; 80076; 84443; 84484; 83880; 70450; 71045; J7613; J7644; 93005; 99284